=== PATIENT | female | born 1990 | race Caucasian/White ===

== ENCOUNTER 2018-08-09 04:46 | Inpatient (IN) | payer SELFPAY ==
[2018-08-09 07:34] LABS: AMPHETAMINES URINE REFLEX NEGATIVE (NEGATIVE); BARBITURATES URINE REFLEX NEGATIVE (NEGATIVE); BENZODIAZEPINES URINE REFLEX NEGATIVE (NEGATIVE); CANNABINOIDS URINE REFLEX NEGATIVE (NEGATIVE); COCAINE METABOLITE URINE REFLE NEGATIVE (NEGATIVE); METHADONE URINE REFLEX NEGATIVE (NEGATIVE); OPIATES URINE REFLEX NEGATIVE (NEGATIVE); PHENCYCLIDINE URINE REFLEX NEGATIVE (NEGATIVE)
[2018-08-09] MEDS: LABETALOL 200 MG TAB PO (07:35)
[2018-08-09 07:58] LABS: HEMATOCRIT 30.3 % (36.0-47.0); MEAN CORPUSCULAR HEMOGLOBIN 28.7 pg (27.0-33.0); MEAN CORPUSCULAR VOLUME 87.1 fl (80.0-96.0); PLATELET COUNT, AUTOMATED 268 10^3/uL (150-450); RED BLOOD COUNT 3.48 10^6/uL (4.00-5.40); RED CELL DISTRIBUTION WIDTH 14.4 % (11.5-14.5); WHITE BLOOD COUNT 20.7 10^3/uL (4.0-10.0)
[2018-08-09 08:16] LABS: ALBUMIN 2.9 GM/DL (3.2-5.2); ALBUMIN/GLOBULIN RATIO 0.73 (1.00-1.93); ALKALINE PHOSPHATASE 160 U/L (45-117); ALT/SGPT 12 U/L (12-78); ANION GAP 13 MEQ/L (8-16); AST/SGOT 13 U/L (7-37); BILIRUBIN,TOTAL 0.3 MG/DL (0.2-1.0); BLOOD UREA NITROGEN 5 MG/DL (7-18); CALCIUM LEVEL 8.9 MG/DL (8.5-10.1); CARBON DIOXIDE LEVEL 19 MEQ/L (21-32); CHLORIDE LEVEL 108 MEQ/L (98-107); CREATININE FOR GFR 0.69 MG/DL (0.55-1.30); GLOMERULAR FILTRATION RATE > 60.0 (>60); GLUCOSE, FASTING 81 MG/DL (70-100); LDH LACTATE DEHYDROGENASE 176 U/L (84-246); POTASSIUM SERUM 3.9 MEQ/L (3.5-5.1); SODIUM LEVEL 140 MEQ/L (136-145); TOTAL PROTEIN 6.9 GM/DL (6.4-8.2); URIC ACID 6.4 MG/DL (2.6-6.0)
[2018-08-09] MEDS: LR 1,000 ML IV ×3 (09:17→21:33)
[2018-08-09] MEDS ORDERED: LABETALOL HCL 100 MG/20 ML VIAL As Ordered (11:18)
[2018-08-09] MEDS: AMPICILLIN SOD 1 GM in D5W 50 ML IV ×4 (11:34→23:30)
[2018-08-09] MEDS: LABETALOL HCL 100 MG/20 ML VIAL IV (11:34)
[2018-08-09 12:21] LABS: HBSAG L&D NEGATIVE (NEGATIVE)
[2018-08-09 12:55] LABS: HIV 1&2 SCREEN CENTAUR NEGATIVE (NEGATIVE)
[2018-08-09] MEDS ORDERED: OXYTOCIN 30 UNITS IN 0.9% NaCl 500ML IV BAG (J2590) As Ordered (17:45)
[2018-08-09] MEDS: OXYTOCIN DRIP 30 UNITS in APPROPRIATE DILUENT 1 EA IV (17:54)
[2018-08-09] MEDS: LACTATED RINGER'S 1000 ML IV (18:18)
[2018-08-09 18:21] LABS: HEMATOCRIT 28.7 % (36.0-47.0); HEMOGLOBIN 9.4 g/dl (12.0-15.5); MEAN CORPUSCULAR HEMOGLOBIN 28.5 pg (27.0-33.0); MEAN CORPUSCULAR HGB CONC 32.8 g/dl (32.0-36.5); PLATELET COUNT, AUTOMATED 237 10^3/uL (150-450); RED CELL DISTRIBUTION WIDTH 14.4 % (11.5-14.5); WHITE BLOOD COUNT 24.5 10^3/uL (4.0-10.0)
[2018-08-09] MEDS: LR 400 ML IV (18:41)
[2018-08-09 18:43] LABS: ALT/SGPT 9 U/L (12-78); AST/SGOT 11 U/L (7-37); BILIRUBIN,TOTAL 0.4 MG/DL (0.2-1.0); CREATININE FOR GFR 0.77 MG/DL (0.55-1.30); GLOMERULAR FILTRATION RATE > 60.0 (>60); LDH LACTATE DEHYDROGENASE 153 U/L (84-246); URIC ACID 6.3 MG/DL (2.6-6.0)
[2018-08-09] MEDS ORDERED: FENTANYL 2MCG/ML ROPIVACAINE 0.2% IN 0.9% NACL 200ML IVBAG As Ordered (18:49)
[2018-08-09] MEDS ORDERED: REFRIGERATOR IV KEYS XX (20:30)
[2018-08-09] MEDS ORDERED: LACTATED RINGER'S 1000 ML IV (20:30)
[2018-08-09] MEDS ORDERED: NALOXONE INJ 0.4 MG/1 ML VIAL (J2310) IV (20:30)
[2018-08-09] MEDS ORDERED: ONDANSETRON 4MG/2ML VIAL (J2405) IV (20:30)
[2018-08-09] MEDS ORDERED: EPIDURAL COMMENT XX (20:30)
[2018-08-09] MEDS ORDERED: ePHEDrine SULFATE 25 MG/5 ML(5MG/ML) SYRINGE IV (20:30)
[2018-08-09] MEDS ORDERED: diphenhydrAMINE INJ 50MG/ML VIAL (J1200) IV (20:30)
[2018-08-09] MEDS ORDERED: EPIDURAL/PCA KEYS XX (20:30)
[2018-08-10] MEDS: OXYTOCIN DRIP 30 UNITS in APPROPRIATE DILUENT 1 EA IV (00:28)
[2018-08-10] MEDS ORDERED: RHOGAM 300 MCG (1500 IU) INJ (J2790) IM (00:30)
[2018-08-10] MEDS: miSOPROStol 200 MCG TAB (S0191) PR (00:30)
[2018-08-10] MEDS ORDERED: DOCUSATE SODIUM 100 MG CAP PO (00:30)
[2018-08-10] MEDS ORDERED: METHYLERGONOVINE MALEATE 0.2 MG TAB PO (00:30)
[2018-08-10] MEDS ORDERED: MEASLES,MUMPS,RUBELLA VACCINE INJ (MMR-II) (90707) SC (00:30)
[2018-08-10] MEDS ORDERED: DIBUCAINE 1% OINTMENT 30GM TOP (00:30)
[2018-08-10] MEDS ORDERED: OXYTOCIN 30 UNITS IN 0.9% NaCl 500ML IV BAG (J2590) As Ordered (00:37)
[2018-08-10 00:51] LABS: CORD GAS ABE A -6.5; CORD GAS O2 SAT A 17.8 %; CORD GAS PCO2 A 63.3 mmHg; CORD GAS PH A 7.179 UNITS; CORD GAS PO2 A 13.6 mmHg; CORD GAS SBC A 17.4 MEQ/L
[2018-08-10 00:52] LABS: CORD GAS ABE V -7.1; CORD GAS HCO3 V 18.1 MEQ/L; CORD GAS O2 SAT V 89.2 %; CORD GAS PCO2 V 35.5 mmHg; CORD GAS PH V 7.326 UNITS; CORD GAS PO2 V 51.5 mmHg; CORD GAS SBC V 18.5 MEQ/L; CORD GAS TCO2 V 19.2 MEQ/L
[2018-08-10] MEDS: ACETAMINOPHEN 500 MG TAB PO ×3 (03:07→17:46)
[2018-08-10 07:39] LABS: ALT/SGPT 8 U/L (12-78); AST/SGOT 11 U/L (7-37); BILIRUBIN,TOTAL 0.2 MG/DL (0.2-1.0); CREATININE FOR GFR 0.74 MG/DL (0.55-1.30); GLOMERULAR FILTRATION RATE > 60.0 (>60); LDH LACTATE DEHYDROGENASE 263 U/L (84-246); URIC ACID 6.9 MG/DL (2.6-6.0)
[2018-08-10] MEDS: CARBOPROST TROMETHAMINE 250 MCG/ML AMP IM (08:19)
[2018-08-10] MEDS: FENTANYL/ROPIVACAINE/NACL BAG 200 ML EPIDURAL ×2 (08:19→19:55)
[2018-08-10] MEDS: AMPICILLIN SOD 1 GM in D5W 50 ML IV (08:22)
[2018-08-10] MEDS: PRENATAL VITAMINS CHEWABLE TABLET PO (09:32)
[2018-08-10] MEDS: LABETALOL 200 MG TAB PO ×3 (09:35→21:17)
[2018-08-10] MEDS: ADACEL/BOOSTRIX VACCINE (DIPHTH/PERTUSS/ACELL/TETANUS)0.5ML SYR (90715) IM (09:36)
[2018-08-10 11:46] LABS: RUBELLA IgG QUALITATIVE IMMUNE (IMMUNE)
[2018-08-10 11:46] LABS: HEPATITIS C VIRUS ABY INDEX 0.1 INDEX (<0.8)
[2018-08-11 07:13] LABS: MEAN CORPUSCULAR HEMOGLOBIN 28.4 pg (27.0-33.0); MEAN CORPUSCULAR HGB CONC 31.7 g/dl (32.0-36.5); MEAN CORPUSCULAR VOLUME 89.6 fl (80.0-96.0); PLATELET COUNT, AUTOMATED 236 10^3/uL (150-450); RED BLOOD COUNT 2.01 10^6/uL (4.00-5.40); RED CELL DISTRIBUTION WIDTH 14.9 % (11.5-14.5); WHITE BLOOD COUNT 17.8 10^3/uL (4.0-10.0)
[2018-08-11 07:24] LABS: HEMOGLOBIN 5.7 g/dl (12.0-15.5)
[2018-08-11] MEDS: PRENATAL VITAMINS CHEWABLE TABLET PO (09:27)
[2018-08-11] MEDS: LABETALOL 200 MG TAB PO ×2 (09:27→21:12)
[2018-08-11 10:29] LABS: IMMEDIATE SPIN CROSSMATCH 1 2
[2018-08-11 18:46] LABS: HEMATOCRIT 23.6 % (36.0-47.0); MEAN CORPUSCULAR HGB CONC 33.5 g/dl (32.0-36.5); MEAN CORPUSCULAR VOLUME 86.8 fl (80.0-96.0); PLATELET COUNT, AUTOMATED 268 10^3/uL (150-450); RED BLOOD COUNT 2.72 10^6/uL (4.00-5.40); WHITE BLOOD COUNT 18.1 10^3/uL (4.0-10.0)
[2018-08-11 18:47] LABS: HEMOGLOBIN 7.9 g/dl (12.0-15.5)
[2018-08-12] MEDS: PRENATAL VITAMINS CHEWABLE TABLET PO (08:30)
[2018-08-12] MEDS: LABETALOL 200 MG TAB PO (08:31)
== END 2018-08-12 12:00 | disposition home or self-care (01) | DRG 560 ==
LOC: M LDO 04:46 → M OBS 08-10 02:15 → M LDI 05:35
PROC: 10E0XZZ Delivery of Products of Conception, External Approach (ICD-10-PCS; principal; 2018-08-09)
PROC: 30233N1 Transfusion of Nonautologous Red Blood Cells into Peripheral Vein, Percutaneous Approach (ICD-10-PCS; 2018-08-11)
DX: O77.0 Labor and delivery complicated by meconium in amniotic fluid (principal); O72.1 Other immediate postpartum hemorrhage; Z37.0 Single live birth; O09.31 Supervision of pregnancy with insufficient antenatal care, first trimester; O09.32 Supervision of pregnancy with insufficient antenatal care, second trimester; O09.33 Supervision of pregnancy with insufficient antenatal care, third trimester; O69.89X0 Labor and delivery complicated by other cord complications, not applicable or unspecified; Z3A.39 39 weeks gestation of pregnancy

== ENCOUNTER 2024-07-10 15:49 | Emergency (ER) | payer OTHER, SELFPAY ==
[~2024-07-10] VITALS: Ht 167.6 cm; Wt 101.1 kg
[2024-07-10 15:49] VITALS: BP 174/81; TEMP 96.9; O2SAT 98
[~2024-07-10 15:49] MED LIST: DEPA250T2 OR; LABE20TAB PO; No Historical Meds; PRENTAB9 PO
[2024-07-10 16:52] LABS: BASO # 0.1 10^3/uL (0.0-0.2); BASO % 0.3 % (0.0-1.0); HEMATOCRIT 35.8 % (36.0-47.0); HEMOGLOBIN 11.7 g/dl (12.0-15.5); LYMPH # 1.5 10^3/uL (1.5-5.0); LYMPH % 6.7 % (24.0-44.0); MEAN CORPUSCULAR HEMOGLOBIN 27.3 pg (27.0-33.0); MEAN CORPUSCULAR HGB CONC 32.7 g/dl (32.0-36.5); MEAN CORPUSCULAR VOLUME 83.6 fl (80.0-96.0); MONO # 0.6 10^3/uL (0.0-0.8); MONO % 2.8 % (2.0-8.0); NEUTROPHILS # 19.7 10^3/uL (1.5-8.5); NEUTROPHILS % 89.5 % (36.0-66.0); PLATELET COUNT, AUTOMATED 377 10^3/uL (150-450); RED BLOOD COUNT 4.28 10^6/uL (4.00-5.40)
[2024-07-10] MEDS ORDERED: TUMS500C PO (17:14)
[2024-07-10] MEDS ORDERED: ACET-897 PO (17:14)
[2024-07-10 17:15] LABS: BLOOD UREA NITROGEN 10 MG/DL (9-23); CARBON DIOXIDE LEVEL 19 MMOL/L (20-31); CHLORIDE LEVEL 103 MMOL/L (98-107); CREATININE FOR GFR 0.53 MG/DL (0.55-1.30); GLOMERULAR FILTRATION RATE > 60.0 (>60); GLUCOSE, FASTING 81 MG/DL (60-100); POTASSIUM SERUM 5.6 MMOL/L (3.5-5.1); SODIUM LEVEL 131 MMOL/L (136-145)
[2024-07-10 17:24] LABS: HCG, SERUM QUALITATIVE POSITIVE (NEGATIVE)
== END 2024-07-10 16:41 | disposition admitted as inpatient to this hospital (09) ==
LOC: M ED 15:49
DX: Z53.21 Procedure and treatment not carried out due to patient leaving prior to being seen by health care provider (principal)

== ENCOUNTER 2024-07-10 16:42 | Inpatient (IN) | payer OTHER, SELFPAY ==
[~2024-07-10] VITALS: Ht 167.6 cm; Wt 101.8 kg
[2024-07-10] VITALS (15 sets, daily range): BP systolic 113–165; BP diastolic 62–90
[2024-07-10] MEDS ORDERED: TUMS500C PO (17:14)
[2024-07-10] MEDS ORDERED: ACET-897 PO (17:14)
[2024-07-10] MEDS ORDERED: HOME MED LIST COMPLETE! XX SCH (17:15)
[2024-07-10] MEDS ORDERED: LIDOCAINE 1% MDV 20ML VIAL INFIL PRN (17:30)
[2024-07-10] MEDS ORDERED: OXYTOCIN INJ 10UNITS/ML 1ML VIAL IM PRN (17:30)
[2024-07-10] MEDS ORDERED: OXYTOCIN DRIP 30 UNITS in IV 1 EA IV PRN (17:30)
[2024-07-10] MEDS ORDERED: TRANEXAMIC ACID INJection 1,000 MG in NS 100 ML IV PRN (17:30)
[2024-07-10] MEDS ORDERED: CARBOPROST TROMETHAMINE 250 MCG/ML AMP IM PRN (17:30)
[2024-07-10] MEDS: PENICILLIN G POTASSIUM 5 MU IV 5 MU in D5W MINI-BAG PLUS 100 ML IV STA (17:55)
[2024-07-10 18:15] LABS: HEMATOCRIT 33.3 % (36.0-47.0); HEMOGLOBIN 10.9 g/dl (12.0-15.5); MEAN CORPUSCULAR HEMOGLOBIN 27.8 pg (27.0-33.0); MEAN CORPUSCULAR HGB CONC 32.7 g/dl (32.0-36.5); MEAN CORPUSCULAR VOLUME 84.9 fl (80.0-96.0); PLATELET COUNT, AUTOMATED 339 10^3/uL (150-450); RED BLOOD COUNT 3.92 10^6/uL (4.00-5.40); WHITE BLOOD COUNT 23.5 10^3/uL (4.0-10.0)
[2024-07-10] MEDS: LR 1,000 ML IV SCH (18:18)
[2024-07-10] MEDS: LACTATED RINGER'S 1000 ML IV STA (18:18)
[2024-07-10 18:33] LABS: LDH LACTATE DEHYDROGENASE 198 U/L (120-246)
[2024-07-10 18:34] LABS: ALT/SGPT 9 U/L (7.0-40); AST/SGOT 15 U/L (<34); BILIRUBIN,TOTAL 0.3 MG/DL (0.3-1.2); CREATININE FOR GFR 0.47 MG/DL (0.55-1.30); GLOMERULAR FILTRATION RATE > 60.0 (>60)
[2024-07-10 18:54] LABS: HEPATITIS B SURFACE ANTIGEN NEGATIVE (NEGATIVE)
[2024-07-10 19:15] LABS: HEPATITIS C VIRUS ABY INDEX < 0.02 INDEX (<0.8)
[2024-07-10 19:16] LABS: URIC ACID 5.6 MG/DL (3.1-7.8)
[2024-07-10 19:22] LABS: AMPHETAMINES LEVEL URINE NEGATIVE (NEGATIVE); BARBITURATES URINE NEGATIVE (NEGATIVE); BENZODIAZEPINES URINE NEGATIVE (NEGATIVE); CANNABINOIDS URINE NEGATIVE (NEGATIVE); COCAINE METABOLITE URINE NEGATIVE (NEGATIVE); METHADONE URINE NEGATIVE (NEGATIVE); OPIATES URINE NEGATIVE (NEGATIVE); PHENCYCLIDINE URINE NEGATIVE (NEGATIVE)
[2024-07-10 19:24] LABS: CREATININE,RANDOM URINE 134.3 MG/DL
[2024-07-10] MEDS ORDERED: diphenhydrAMINE 50MG/ML VIAL IV PRN (19:55)
[2024-07-10] MEDS ORDERED: NALOXONE INJ 0.4MG/1ML VIAL IV PRN (19:55)
[2024-07-10] MEDS ORDERED: EPIDURAL/PCA KEYS XX PRN (19:55)
[2024-07-10] MEDS ORDERED: LR 500 ML IV PRN (19:55)
[2024-07-10] MEDS ORDERED: ONDANSETRON 4MG 2ML VIAL IV PRN (19:55)
[2024-07-10] MEDS ORDERED: ePHEDrine SULFATE 25 MG/5 ML(5MG/ML) SYRINGE IVP PRN (19:55)
[2024-07-10] MEDS: FENTANYL/ROPIVACAINE/NACL BAG 100 ML EPIDURAL SCH (20:05)
[2024-07-10 20:15] LABS: HIV 1&2 SCREEN NEGATIVE (NEGATIVE)
[2024-07-10] MEDS ORDERED: OXYTOCIN 30UNITS IN 0.9% NaCl 500ML IV BAG As Ordered ONE (20:43)
[2024-07-10] MEDS ORDERED: PEN G POT 3,000,000 UNIT/50 ML 3,000,000 UNIT in IV 1 EA IV SCH (21:55)
[2024-07-10] MEDS ORDERED: IBUPROFEN 600MG TAB PO PRN (22:50)
[2024-07-10] MEDS ORDERED: RHO(D) IMMUNE GLOBULIN/MALTOSE 500MCG(2500IU)/2.2ML VIAL (WINRHO) IM SCH (22:50)
[2024-07-10] MEDS ORDERED: DOCUSATE SODIUM 100MG CAPSULE PO PRN (22:50)
[2024-07-10] MEDS ORDERED: METHYLERGONOVINE MALEATE 0.2 MG TAB PO PRN (22:50)
[2024-07-10] MEDS ORDERED: ACETAMINOPHEN TAB 650MG DOSE (2X325MG) PO PRN (22:50)
[2024-07-11 00:53] VITALS: BP 141/71; O2SAT 99
[2024-07-11] MEDS: ACETAMINOPHEN 500 MG TAB PO PRN (01:56)
[2024-07-11 06:00] VITALS: BP 139/80; O2SAT 100
[2024-07-11] MEDS: PRENATAL VITAMINS CHEWABLE TABLET PO SCH (08:29)
[2024-07-11] MEDS: DIBUCAINE 1% OINTMENT 30GM TOP PRN (08:30)
[2024-07-11] MEDS: IBUPROFEN 800 MG TAB PO PRN (08:30)
[2024-07-11 13:49] LABS: Trichomonas vaginalis (AMP) NOT DETECTED (NEGATIVE)
[2024-07-11 14:13] LABS: GC DNA AMPLIFICATION NEGATIVE (NEGATIVE)
[2024-07-11 17:50] VITALS: BP 134/69; O2SAT 99
[2024-07-12 06:02] VITALS: BP 139/67; O2SAT 100
[2024-07-12] MEDS ORDERED: MEASLES,MUMPS,RUBELLA VACCINE INJ (MMR-II) SC.IMMUN ONE (09:00)
[2024-07-12] MEDS ORDERED: IBUP80TA PO (09:09)
== END 2024-07-12 09:50 | disposition home or self-care (01) | DRG 560 ==
LOC: M LDO 16:42 → M LDI 17:29 → M OBS 07-11 00:46
PROVIDERS: ADMIT Advanced Practice Midwife; ATTEND Advanced Practice Midwife
PROC: 10E0XZZ Delivery of Products of Conception, External Approach (ICD-10-PCS; principal; 2024-07-10)
PROC: 0HQ9XZZ Repair Perineum Skin, External Approach (ICD-10-PCS; 2024-07-10)
DX: O70.0 First degree perineal laceration during delivery (principal); F17.210 Nicotine dependence, cigarettes, uncomplicated; O99.334 Smoking (tobacco) complicating childbirth; O99.824 Streptococcus B carrier state complicating childbirth; O69.81X0 Labor and delivery complicated by cord around neck, without compression, not applicable or unspecified; O77.0 Labor and delivery complicated by meconium in amniotic fluid; Z37.0 Single live birth; Z3A.37 37 weeks gestation of pregnancy

== ENCOUNTER 2024-07-12 18:39 | Emergency (ER) | payer OTHER ==
[~2024-07-12] VITALS: Ht 167.6 cm; Wt 100.7 kg
[~2024-07-12 18:39] MED LIST changes: +ACET-897 PO; +IBUP80TA PO; +TUMS500C PO
[2024-07-12] MEDS: NS 1,000 ML IV ONE (18:56)
[2024-07-12 19:13] LABS: BASO # 0.1 10^3/uL (0.0-0.2); BASO % 0.3 % (0.0-1.0); EOS # 0.1 10^3/uL (0.0-0.5); EOS % 0.5 % (0.0-3.0); HEMOGLOBIN 9.1 g/dl (12.0-15.5); LYMPH # 3.4 10^3/uL (1.5-5.0); LYMPH % 19.3 % (24.0-44.0); MEAN CORPUSCULAR HEMOGLOBIN 27.4 pg (27.0-33.0); MEAN CORPUSCULAR HGB CONC 32.5 g/dl (32.0-36.5); MEAN CORPUSCULAR VOLUME 84.3 fl (80.0-96.0); MONO # 0.6 10^3/uL (0.0-0.8); MONO % 3.3 % (2.0-8.0); NEUTROPHILS # 13.5 10^3/uL (1.5-8.5); NEUTROPHILS % 75.7 % (36.0-66.0); PLATELET COUNT, AUTOMATED 381 10^3/uL (150-450); RED BLOOD COUNT 3.32 10^6/uL (4.00-5.40); WHITE BLOOD COUNT 17.8 10^3/uL (4.0-10.0)
[2024-07-12 19:26] LABS: INR 1.01; PARTIAL THROMBOPLASTIN TIME 24.1 SECONDS (24.8-34.2)
[2024-07-12 19:46] LABS: ALBUMIN 2.6 G/DL (3.2-5.2); ALKALINE PHOSPHATASE 89 U/L (46-116); ALT/SGPT 9 U/L (7.0-40); AST/SGOT 17 U/L (<34); BILIRUBIN,TOTAL < 0.2 MG/DL (0.3-1.2); BLOOD UREA NITROGEN 10 MG/DL (9-23); CARBON DIOXIDE LEVEL 19 MMOL/L (20-31); CHLORIDE LEVEL 108 MMOL/L (98-107); CREATININE FOR GFR 0.56 MG/DL (0.55-1.30); GLOMERULAR FILTRATION RATE > 60.0 (>60); GLUCOSE, FASTING 88 MG/DL (60-100); POTASSIUM SERUM 3.9 MMOL/L (3.5-5.1); SODIUM LEVEL 137 MMOL/L (136-145); TOTAL PROTEIN 6.4 G/DL (5.7-8.2)
[2024-07-12 20:51] VITALS: BP 124/77; TEMP 98.8; O2SAT 98
== END 2024-07-12 20:52 | disposition home or self-care (01) ==
LOC: M ED 18:39
DX: O72.2 Delayed and secondary postpartum hemorrhage (principal); Z79.1 Long term (current) use of non-steroidal anti-inflammatories (NSAID)

== ENCOUNTER → 2025-09-17 | Outpatient (REF) | payer MEDICARE, OTHER | LOC: M LAB REF 11:56 | PROVIDERS: ATTEND Physician Assistant | DX: B34.9 Viral infection, unspecified (principal) ==